=== PATIENT | male | born 1985 | race Caucasian/White ===

== ENCOUNTER 2018-01-18 17:46 | Emergency (ER) | payer MEDICAID ==
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
[2018-01-18 18:14] VITALS: BP 127/74
== END 2018-01-18 18:22 ==
LOC: EDBD → EDUNIT#
DX: R51 Headache (principal); Y35.813A Legal intervention involving manhandling, suspect injured, initial encounter; F17.200 Nicotine dependence, unspecified, uncomplicated